=== PATIENT | female | born 1960 | race Caucasian/White ===

== ENCOUNTER 2024-07-18 16:47 | Emergency (ER) | payer OTHER ==
[2024-07-18 16:56] VITALS: BP 135/79; PULSE 94
[2024-07-18] MEDS: Lidocaine/Epineph/Tetracaine 3 ML Syringe TOP ONE (17:45)
== END 2024-07-18 18:50 | disposition home or self-care (01) ==
LOC: JD.ED 16:47
DX: S01.01XA Laceration without foreign body of scalp, initial encounter (principal); S09.90XA Unspecified injury of head, initial encounter; Z79.82 Long term (current) use of aspirin; Z79.899 Other long term (current) drug therapy; Z91.048 Other nonmedicinal substance allergy status; W01.198A Fall on same level from slipping, tripping and stumbling with subsequent striking against other object, initial encounter
CPT/HCPCS: 12002; 70450; 99283; A9270

== ENCOUNTER 2025-02-01 06:45 | Day surgery (SDC) | payer OTHER ==
[~2025-02-01 06:45] MED LIST: HYDROmorphone 0.5 MG/0.5 ML Syringe IVPUSH PRN; Ondansetron 4 MG/2 ML SDV IVPUSH PRN; Sodium Chloride 0.9% 10 ML Syringe FLUSH PRN; Sodium Chloride 0.9% 10 ML Syringe FLUSH SCH; fentaNYL 100 MCG/2 ML SDV IVPUSH PRN
[2025-02-01] MEDS: Lactated Ringers 1,000 ML IV SCH (07:00)
[2025-02-01] MEDS ORDERED: Ketamine 200 MG/20 ML MDV ONE (07:02)
[2025-02-01] MEDS ORDERED: fentaNYL 100 MCG/2 ML SDV ONE (07:02)
[2025-02-01] MEDS ORDERED: Ropivacaine 0.5% 5 MG/ML 30 ML SDV ONE (07:02)
[2025-02-01] MEDS ORDERED: Midazolam 1 MG/ML 2 ML SDV ONE (07:02)
[2025-02-01] MEDS ORDERED: propofoL 500 MG/50 ML 50 ML ONE ×2 (07:02→09:49)
[2025-02-01] MEDS ORDERED: Bupivacaine 0.5% 30 ML SDV ONE (07:23)
[2025-02-01] MEDS ORDERED: Lidocaine 1% 5 ML VIAL ONE (07:56)
[2025-02-01] MEDS ORDERED: ceFAZolin 2 GM Vial ONE (08:13)
[2025-02-01] MEDS ORDERED: Esmolol 100 MG/10 ML SDV ONE (09:01)
[2025-02-01] MEDS: Bupivacaine 0.5% 30 ML SDV ONE (09:19)
[2025-02-01] MEDS ORDERED: Metoprolol Tartrate 5 MG/5 ML SDV ONE (09:20)
[2025-02-01] MEDS ORDERED: hydrALAZINE 20 MG/ML SDV ONE (09:57)
[2025-02-01] MEDS ORDERED: Lidocaine 1% 10 ML MDV ONE (10:17)
[2025-02-01] MEDS: Lidocaine 1% 5 ML VIAL ONE (11:05)
[2025-02-01 12:58] VITALS: BP 120/95; PULSE 70
== END 2025-02-01 13:30 | disposition home or self-care (01) ==
LOC: JD.SDS 06:45
PROVIDERS: ATTEND Podiatrist Foot & Ankle Surgery
DX: M62.461 Contracture of muscle, right lower leg (principal); M92.61 Juvenile osteochondrosis of tarsus, right ankle; M76.61 Achilles tendinitis, right leg; M89.8X7 Other specified disorders of bone, ankle and foot; Z79.82 Long term (current) use of aspirin; Z79.899 Other long term (current) drug therapy; Z87.891 Personal history of nicotine dependence
CPT/HCPCS: 27650; 27687; 28045; 28289; C1713; J0360; J0665; J0690; J1805; J2003; J2250; J2704; J2795; J3010; J3490; J7120; 01480; 01500; 64447; 64450